=== PATIENT | female | born 1990 | race Hispanic/Latino ===

== ENCOUNTER 2019-02-23 10:57 | Day surgery (SDC) | payer OTHER ==
[~2019-02-23] VITALS: Ht 162.6 cm; Wt 68.0 kg
[~2019-02-23 10:57] MED LIST: NEXP1IMP SC; ZOLO100T PO
[2019-02-23] MEDS: NS 1,000 ML IV ONE (11:17)
[2019-02-23] MEDS ORDERED: PROPOFOL 200 MG/20 ML VIAL As Ordered ONE (11:36)
[2019-02-23] MEDS ORDERED: LIDOCAINE 2% INJ 100 MG/5 ML SDV (FOR ANES.) As Ordered ONE (11:44)
--- NOTE | 2019-02-23 12:11 | ROOR ---
Patient Name: Baltazar Tapia Procedure Date: 02/23/2019 11:54 AM Date of : 1990 Age: 28 Room: [facility] Gender: Female Note Status: Finalized Procedure: Total Colonoscopy to Cecum Indications: Screening in patient at increased risk: Colorectal cancer in mother before age 60 Providers: Michael León MD Referring MD: MARILEE HUNT MD Requesting Provider: Medicines: Monitored Anesthesia Care Complications: No immediate complications. Procedure: Pre-Anesthesia Assessment: - The heart rate, respiratory rate, oxygen saturations, blood pressure, adequacy of pulmonary ventilation, and response to care were monitored throughout the procedure. The Colonoscope was introduced through the anus and advanced to the cecum, identified by appendiceal orifice and ileocecal valve. The colonoscopy was performed without difficulty. The patient tolerated the procedure well. The quality of the bowel preparation was excellent. Findings: The perianal and digital rectal examinations were normal. No other significant abnormalities were identified in a careful examination of the remainder of the colon. The exam was otherwise without abnormality on direct and retroflexion views. Impression: - The examination was otherwise normal on direct and retroflexion views. - No specimens collected. - The exam was otherwise normal to the cecum. Recommendation: - Patient has a contact number available for emergencies. The signs and symptoms of potential delayed complications were discussed with the patient. Return to normal activities tomorrow. Written discharge instructions were provided to the patient. - High fiber diet. - Discharge patient to home. - Continue present medications. - Repeat colonoscopy in 5 years for screening purposes. - Return to referring physician. - The findings and recommendations were discussed with the patient's family. Michael León MD Michael León MD 02/23/2019 12:11:02 PM Electronically signed by Michael León MD Number of Addenda: 0 Note Initiated On: 02/23/2019 11:54 AM Estimated Blood Loss: Estimated blood loss: none.
[2019-02-23 12:46] VITALS: BP 119/65
== END 2019-02-23 13:03 | disposition home or self-care (01) ==
LOC: M OPP 10:57
PROVIDERS: ATTEND Internal Medicine Gastroenterology
DX: Z12.11 Encounter for screening for malignant neoplasm of colon (principal); Z80.0 Family history of malignant neoplasm of digestive organs